=== PATIENT | male | born 1970 | race Caucasian/White ===

== ENCOUNTER 2023-06-16 09:20 | Emergency (ER) | payer BC ==
[2023-06-16] MEDS: Acetaminophen 500 MG Tab PO ONE (09:36)
[2023-06-16] MEDS: Albuterol/Ipratropium 3.0-0.5 MG/3 ML Neb Soln NEB ONE (09:37)
[2023-06-16] MEDS: Ibuprofen 400 MG Tab PO ONE (09:37)
[2023-06-16 10:12] LABS: CORONAVIRUS COVID-19 NAA NEGATIVE (NEGATIVE); INFLUENZA A NAA NEGATIVE (NEGATIVE); INFLUENZA B NAA NEGATIVE (NEGATIVE); RESPIRATORY SYNCYTIAL VIR NAA POSITIVE (NEGATIVE)
== END 2023-06-16 10:50 | disposition home or self-care (01) ==
LOC: MW.ED 09:20
DX: R05.9 Cough, unspecified (principal); B97.4 Respiratory syncytial virus as the cause of diseases classified elsewhere; Z79.51 Long term (current) use of inhaled steroids; Z79.899 Other long term (current) drug therapy
CPT/HCPCS: 0241U; 71045; 94640; 99284; A9270; J7620-GY